=== PATIENT | male | born 1955 | race Caucasian/White ===

== ENCOUNTER 2016-12-01 22:18 | Emergency (ER) | payer MEDICARE ==
[2016-12-01] MEDS ORDERED: ASPIRIN 81 MG CHEWABLE TABLET PO ONE (22:27)
[2016-12-01] MEDS ORDERED: ESMOLOL 2.5GM/250ML 250 ML IV SCH (22:30)
--- NOTE | 2016-12-01 22:38 | Emergency Department Record ---
History of Present Illness - General Chief Complaint: Hypertension Stated Complaint: HEART RACING Time Seen by Provider: 12/01/16 22:26 Source: Patient Mode of Arrival: Ambulatory Limitations: No limitations - History of Present Illness Initial Comments: 61 yo male presents to ED with a CC of palpitations. Patient reports that he ran out of his atenolol 48 hours ago, attempted to refill his medication but the pharmacy was out it. Patient reports a history of CAD and atrial fibrillation previously, but is from [place] where is providers are located. Patient denies chest pain or difficulty breathing. Onset/Timin -: Hour(s) Timing: Awoke with symptoms History of Same: Yes (when he forgets to take or runs out of atenolol) History of Trauma: No Severity: Mild Improves With: Medication Worsens With: Nothing Associated Symptoms: Denies other symptoms - Curtis Coma Scale Eye Response: (4) Open spontaneously Motor Response: (6) Obeys commands Verbal Response: (5) Oriented [place] Total: 15 - Related Data Home Medications Medication Instructions Recorded Confirmed Last Taken Atenolol [Tenormin] 50 mg PO QHS 12/01/16 12/01/16 11/29/16 Atorvastatin Calcium 40 mg PO QHS 12/01/16 12/01/16 Unknown Clopidogrel Bisulfate [Plavix] 75 mg PO DAILY 12/01/16 12/01/16 Unknown Fenofibrate Nanocrystallized 145 mg PO DAILY 12/01/16 12/01/16 Unknown [Fenofibrate] Gabapentin [Neurontin] 300 mg PO TID 12/01/16 12/01/16 Unknown Lisinopril 2.5 mg PO DAILY 12/01/16 12/01/16 Unknown Pantoprazole Sodium 40 mg PO DAILY 12/01/16 12/01/16 Unknown Ranitidine HCl [Heartburn Relief] 150 mg PO DAILY 12/01/16 12/01/16 Unknown Sitagliptin Phosphate [Januvia] 100 mg PO QAM 12/01/16 12/01/16 Unknown Tramadol HCl 50 mg PO Q6H 12/01/16 12/01/16 Unknown Allergies Allergy/AdvReac Type Severity Reaction Status Date / Time codeine Allergy ITCHING Verified 12/01/16 22:21 Travel Screening - Travel/Exposure Within Last 30 Days Have you traveled within the last 30 days?: Yes Location Detail:: from [place] - Travel/Exposure Within Last Year Have you traveled outside the [place] in the last year?: No - Additonal Travel Details Have you been exposed to anyone with a communicable illness?: No - Travel Symptoms Symptom Screening: None Review of Systems Constitutional: Denies: Chills, Fever, Malaise, Night sweats Eyes: Denies: Eye discharge, Eye pain ENT: Denies: Congestion, Ear pain, Epistaxis Respiratory: Denies: Cough, Dyspnea Cardiovascular: Reports: Palpitations. Denies: Chest pain, Dyspnea on exertion Endocrine: Reports: Fatigue. Denies: Heat or cold intolerance Gastrointestinal: Denies: Abdominal pain, Nausea, Vomiting Genitourinary: Denies: Incontinence, Retention Musculoskeletal: Denies: Arthralgia, Back pain, Gout, Joint swelling Skin: Denies: Bruising, Change in color Neurological: Denies: Abnormal gait, Confusion, Headache, Seizure Psychiatric: Denies: Anxiety Hematological/Lymphatic: Denies: Anemia, Blood Clots Past Medical History - SOCIAL HISTORY Smoking Status: Current every day smoker Alcohol Use: None Drug Use: None - RESPIRATORY Hx Respiratory Disorders: No - CARDIOVASCULAR Hx Cardio Disorders: Yes Hx Cardiac Cath: Yes Hx Chest Pain: Yes Hx Irregular Heartbeat: Yes - NEURO Hx Neuro Disorders: No - GI Hx GI Disorders: No - Hx Genitourinary Disorders: No - ENDOCRINE Hx Diabetes: Yes - MUSCULOSKELETAL Hx Musculoskeletal Disorders: Yes Hx Back Injury: Yes - PSYCH Hx Psych Problems: No - HEMATOLOGY/ONCOLOGY Hx Hematology/Oncology Disorders: No Family Medical History Any Significant Family History?: No Physical Exam - General General Appearance: Alert, Oriented x3, Cooperative, Mild distress Limitations: No limitations - Head Head exam: Atraumatic, Normocephalic, Normal inspection Head exam detail: negative: Abrasion, Contusion, Dave's sign, General tenderness, Hematoma, Laceration - Eye Eye exam: Normal appearance. negative: Conjunctival injection, Periorbital swelling, Periorbital tenderness, Scleral icterus - ENT Ear exam: negative: Auricular hematoma, Auricular trauma Nasal Exam: negative: Active bleeding, Discharge, Foreign body Mouth exam: negative: Drooling, Laceration, Tongue elevation - Neck Neck exam: Normal inspection. negative: Meningismus, Tenderness - Respiratory Respiratory exam: Normal lung sounds bilaterally. negative: Rales, Respiratory distress, Rhonchi, Stridor - Cardiovascular Cardiovascular Exam: Irregular rhythm, Tachycardia - GI/Abdominal GI/Abdominal exam: Soft. negative: Rebound, Rigid, Tenderness - Rectal Rectal exam: Deferred - exam: Deferred - Extremities Extremities exam: Normal inspection. negative: Calf tenderness, Pedal edema, Tenderness - Back Back exam: Denies: CVA tenderness (R), CVA tenderness (L) - Neurological Neurological exam: Alert, Normal gait, Oriented X3 - Psychiatric Psychiatric exam: Normal affect, Normal mood - Skin Skin exam: Normal color. negative: Abrasion Type of lesion: negative: abrasion Course Vital Signs 12/01/16 12/01/16 22:21 22:30 Temperature 97.8 F 97.8 F Pulse Rate 64 137 H Respiratory 20 22 Rate Blood Pressure 117/92 117/92 Pulse Ox 99 99 - Reevaluation(s) Reevaluation #1: 12/01/16 22:37 EKG: Atrial fibrillation 129 Normal axis, irregular R-R intervals ST depression V2-V6 Reevaluation #2: 12/01/16 23:15 Labs reviewed, BUN 22/Creatinine 1.5, Glucose 300. Cardiac enzymes are negative for an acute process. Cardizem bolus given, qttp is being initiated currently, pulse 104-119 currently. Will initiate transfer to [facility] per patient preference for further cardiac evaluation. Reevaluation #3: 12/01/16 23:32 Case was discussed with Dr. Kitchen, will accept transfer for admission. Reevaluation #4: 12/02/16 00:02 Repeat EKG: Atrial Fibrillation 78 Normal axis, irregular R-R intervals Improvement in ST depression compared with previous EKG. Awaiting bed for transfer at this time. Medical Decision Making - Lab Data Result diagrams: 12/01/16 22:35 12/01/16 22:35 Critical Care Time Critical Care Time: Yes Total Critical Care Time: 45 Critical Care Time: Diagnosis and treatment of atrial fibrillation with rapid ventricular response, rate control, and exclusion of ACS. Disposition Disposition: Transfer Clinical Impression: Atrial fibrillation with rapid ventricular response Disposition: Acute Care Hospital Transfer Transfer To: [facility] Reason For Transfer: Atrial Fibrillation with RVR Accepting Physician: Fidelina Time Discussed w/Accepting Physician: 23:33 Condition: (2) Stable Forms: Patient Portal Access Time of Disposition: 23:33 Quality - Quality Measures Quality Measures: N/A - Blood Pressure Screening Blood Pressure Classification: Normal BP Reading Systolic Measurement: 97 Diastolic Measurement: 73 Screening for High Blood Pressure: < Normal BP, F/U Not Required > [G8783] Normal BP Follow-up Interventions: No follow-up required
[2016-12-01 22:42] LABS: BASO % 0.4 % (0-6); EOS % 2.2 % (0-6); GRAN % 45.7 % (47-80); HEMATOCRIT 45.9 % (42.0-52.0); HEMOGLOBIN 15.8 gm/dl (14.0-18.0); LYMPH % 44.9 % (16-45); MEAN CORPUSCULAR HEMOGLOBIN 29.3 pg (27-33); MEAN CORPUSCULAR HGB CONC 34.4 g/dl (32-36); MONO % 6.8 % (0-9); PLATELET COUNT 273 K/uL (130-400); RED CELL DISTRIBUTION WIDTH 13.3 % (11.5-14.5); WHITE BLOOD COUNT W/O DIFF 7.2 K/uL (4.2-12.2)
[2016-12-01] MEDS ORDERED: DILTIAZEM 25MG/5ML VIAL IV ONE (22:51)
[2016-12-01 22:54] LABS: ALB/GLOB RATIO 1.5 (1.1-1.8); ALBUMIN 4.7 gm/dL (3.5-5.0); ALKALINE PHOSPHATASE 65 U/L (38-126); ALT/SGPT 38 U/L (21-72); ANION GAP 12.3 (7-16); AST/SGOT 15 U/L (17-59); BILIRUBIN,TOTAL 0.91 mg/dL (0.2-1.3); BLOOD UREA NITROGEN 22 mg/dL (9-20); CARBON DIOXIDE 25.7 mmol/L (22-30); CREATINE PHOSPHOKINASE 36 U/L (55-170); CREATININE 1.5 mg/dL (0.66-1.25); EST GLOMERULAR FILTRATION RATE 50 ml/min; GLUCOSE,RANDOM 300 mg/dL (70-110); INR 0.96; PROTHROMBIN TIME (PATIENT) 10.4 SECONDS (9.5-12.1); TOTAL PROTEIN 7.8 gm/dL (6.3-8.2)
[2016-12-01] MEDS ORDERED: DILTIAZEM HCL 125 MG in 0.9 % SODIUM CHLORIDE 100ML 100 ML IV SCH (23:00)
[2016-12-01 23:06] LABS: CKMB 0.5 ug/L (0-6); TROPONIN I < 0.012 ng/mL (0.00-0.034)
[2016-12-01] MEDS ORDERED: HEPARIN SODIUM/D5W 25,000 UNITS/500 ML BAG IV SCH (23:45)
== END 2016-12-02 01:46 | disposition short-term general hospital (02) ==
LOC: ER 22:18
DX: I48.0 Paroxysmal atrial fibrillation (principal); I25.10 Atherosclerotic heart disease of native coronary artery without angina pectoris; I10 Essential (primary) hypertension; F17.210 Nicotine dependence, cigarettes, uncomplicated; E11.9 Type 2 diabetes mellitus without complications; Z79.84 Long term (current) use of oral hypoglycemic drugs
CPT/HCPCS: 80053; 82550; 82553; 84484; 85025; 85610; 93005; 93010; 96365; 96366; 96368; 96375; 99291; 99292